=== PATIENT | male | born 1970 | race Caucasian/White ===

== ENCOUNTER 2017-11-26 05:17 | Day surgery (SDC) | payer OTHER ==
[~2017-11-26] VITALS: Ht 175.3 cm; Wt 72.6 kg
--- NOTE | ~2017-11-26 | H ---
[facility] [place] [address] HISTORY AND PHYSICAL Name: DENY MALCOLM Room #: 150-2 [facility]#: [id number] Admission: 11/26/17 Attend Phys: Jaleel Joshi MD Discharge: Date of : 68 Report #: [id number] THIS REPORT FOR: //name// CC: Dakota Joshi Patient of Dr. Jaleel Joshi and Dr. Dakota Hernandez. DATE OF ADMISSION AND SURGERY: 11/26/2017. CHIEF COMPLAINT: Left groin bulge. HISTORY OF PRESENT ILLNESS: The patient is a 47-year-old white male who noticed several weeks ago left groin bulge. He denied any pain. He did identify a protruding mass, but denied any recent changes in bowel or bladder habits. No history of any hernias. He saw Dr. Hernandez who recommended surgical consultation. PAST MEDICAL HISTORY: Hypercholesterolemia, vasectomy, abdominal hernia repair in 2004. MEDICATIONS: Ibuprofen, Zyrtec. ALLERGIES: No known drug allergies. FAMILY HISTORY: Noncontributory. SOCIAL HISTORY: . Drinks alcohol occasionally, does not smoke. REVIEW OF SYSTEMS: Pertinent positives as above. Full review of systems otherwise negative. PHYSICAL EXAMINATION: GENERAL: Well-developed, well-nourished 47-year-old white male, in no acute distress. VITAL SIGNS: Stable. He is afebrile. HEENT: Sclerae nonicteric. Mucous membranes moist and pink. NECK: There is no adenopathy. LUNGS: Clear to auscultation bilaterally. Normal excursion. CARDIOVASCULAR: Regular rate and rhythm. No murmurs, S3, S4, no PMI. ABDOMEN: Soft, flat, nontender, no palpable masses, no organomegaly, no hernias. GENITOURINARY: Normal scrotum, phallus and testes. There is a left inguinal hernia, which is partially reducible. EXTREMITIES: No clubbing, cyanosis or edema. NEUROLOGIC: Intact with a clear mental status. IMPRESSION: A 47-year-old white male with a left inguinal hernia. I fully [address] [address] HISTORY AND PHYSICAL Name: DENY MALCOLM Diony Room #: 150-2 [facility]#: [id number] Admission: 11/26/17 Attend Phys: Jaleel Joshi MD Discharge: Date of : 68 Report #: [id number] discussed with the patient the diagnosis, prognosis and treatment options. He states he understands, agrees to surgery. PLAN: We will perform a left inguinal hernia repair with mesh under local IV sedation as an outpatient at [facility]. The procedure and its risks, benefits, possible complications including use of mesh were fully discussed with the patient, he states he understands and agrees to proposed surgery. <ELECTRONICALLY SIGNED> By: Jaleel Joshi MD 11/26/17 1555 [id number] [id number] Jaleel Joshi MD /isidra
--- NOTE | ~2017-11-26 | O ---
[facility] [place] [place] [address] OPERATIVE REPORT Name: DENY MALCOLM Room #: 150-2 [facility]#: [id number] Admission: 11/26/17 Attend Phys: Jaleel Joshi MD Discharge: Date of : 68 Report #: [id number] THIS REPORT FOR: //name// CC: DAKOTA Joshi DATE OF SERVICE: 11/26/[address] Jaleel Joshi and Dr. Dakota Hernandez. PREOPERATIVE DIAGNOSIS: Left inguinal hernia. POSTOPERATIVE DIAGNOSIS: Left inguinal hernia with a left cord lipoma. PROCEDURE: Left inguinal hernia repair with Prolene hernia system mesh and excision of left cord lipoma. SURGEON: Jaleel Josih MD ANESTHESIA: Local IV sedation. DESCRIPTION OF PROCEDURE: The patient was brought to the operating room and placed on operative table in the supine position. Sequential compression devices were in place for DVT prophylaxis. There was no indication for preoperative antibiotics. The patient underwent IV sedation and the left inguinal area was prepped and draped in a sterile fashion. Skin and subcutaneous tissue were then infiltrated with 0.5% Marcaine and 1% Xylocaine in a 1:1 mixture. Left inguinal skin incision was then performed using #10 scalpel blade. Hemostasis obtained using electrocautery as well as clamps, 2-0 chromic ties. Dissection was carried down through subcutaneous tissue, the external oblique fascia, which was then identified and incised with knife and opened with the Metzenbaum scissors. The ilioinguinal nerve was identified, dissected free and preserved. The cord was then elevated and held into place with a Vermillion drain. Cremasteric muscle fibers were then split in the direction of their fibers using clamp and electrocautery. There was no evidence of any indirect inguinal hernia sac. The floor was inspected and there was a moderate sized direct inguinal hernia defect. This hernia sac was dissected free and incised just above the level of floor and reduced back through the floor into the preperitoneal space. An extended Prolene hernia system mesh was then inserted through the floor and the underlay patch was then deployed in the preperitoneal space. The connector was left in the floor and the floor was tightened around the connector using running 2-0 Prolene 2 layer shouldice repair. The overlay patch was then deployed in the inguinal canal and the mesh was secured at the pubic tubercle using the same running 2-0 Prolene suture. The mesh was also secured superiorly and at the connector using simple interrupted 2-[address] [address] OPERATIVE REPORT Name: DENY MALCOLM Room #: 150-2 [facility].#: [id number] Admission: 11/26/17 Attend Phys: Jaleel Joshi MD Discharge: Date of : 68 Report #: [id number] sutures. The mesh was then split and wrapped around the cord and secured to the inguinal ligament with simple interrupted 2-0 Vicryl suture. The cord and ilioinguinal nerve then returned to the canal intact. The external oblique fascia was then closed using running 2-0 Vicryl suture. Alonzo's fascia was then reapproximated using 3 simple interrupted 2-0 chromic sutures and the skin then closed with a running 4-0 subcuticular Vicryl stitch. The wound was then dressed with Mastisol, 1/2-inch Steri-Strips cut in half, Telfa, 4 x 4 gauze, sponge and tape. The patient was then taken to the recovery room awake, alert and in good condition. Estimated blood loss was less than 5 mL and the patient tolerated procedure well. All sponge, lap and instrument counts correct times 2. By: 1552 [id number] Jaleel Joshi MD /nt
--- NOTE | ~2017-11-26 | S ---
[facility] [address] [address] SURGICAL PATH RPT PROCEDURE Name: DENG MALCOLM Diony Room #: DEP [facility] [place] M.Tawana.#: [id number] Admission: 11/26/17 Date of : 68 Discharge: 11/26/17 Report #: [id number] Path Case #: [id number] PATHOLOGY REPORT COLLECTION DATE: 11/26/2017 RECEIVED DATE: 11/27/2017 SUBMITTING PHYS: Dr. Jaleel Joshi OTHER PHYS: Dr. Dakota Hernandez SPECIMEN(S) RECEIVED: A.Cord lipoma * * * * * * * * * * * * FINAL DIAGNOSIS: Mature adipose tissue, cord lipoma, excision: - Compatible with a lipoma with reactive changes. (IUV:db; 11/30/2017) PATHOLOGIST: Lenroa Charles M.D. REPORT ELECTRONICALLY SIGNED BY: Lenora Charles M.D. DATE/TIME: 11/30/2017 13:42 * * * * * * * * * * * * GROSS PATHOLOGY: Received in formalin labeled "Deng Malcolm, cord lipoma" and consists of a thinly encapsulated, glistening, yellow, and soft fragment of adipose tissue measuring 2.2 x 1.1 x 1.0 cm. Sectioning reveals glistening yellow cut surfaces. [employer] sections are submitted as A1. (EMILEE; 11/27/2017) CLINICAL HISTORY: Inguinal hernia INITIAL CPT CODE(S): A; 77480 Professional services performed by [facility] at [facility] [address] [place] [address] Technical services performed by [facility] at [address] [place] [id number]. [facility] [address] [place] [address] SURGICAL PATH RPT PROCEDURE Name: DENG MALCOLM Room #: DEP [facility] [place] Jaun#: [id number] Admission: 11/26/17 Date of : 68 Discharge: 11/26/17 Report #: [id number] Path Case #: [id number] [facility] [address] [place] [id number] PHONE: [phone] DIRECTOR: Amor Marinelli M.D. * * * END OF REPORT * * *
[~2017-11-26 05:17] MED LIST: IBUPROFEN 200200 M1 PO; PEPCID AC20 MG PO; ZYRTEC10 M5 PO
[2017-11-26 13:06] VITALS: BP 115/72
[2017-11-26] MEDS ORDERED: NORCO 5-325 TA1 EACH PO (15:56)
[2017-11-26 16:12] VITALS: BP 115/72
== END 2017-11-26 16:35 | disposition home or self-care (01) ==
LOC: TBA 05:17 → OR 05:17
DX: K40.90 Unilateral inguinal hernia, without obstruction or gangrene, not specified as recurrent (principal); D17.6 Benign lipomatous neoplasm of spermatic cord; E78.00 Pure hypercholesterolemia, unspecified; K21.9 Gastro-esophageal reflux disease without esophagitis; Z98.890 Other specified postprocedural states; Z79.891 Long term (current) use of opiate analgesic
CPT/HCPCS: 50010; 50101; 50386; 50417; 54111; 56524; 56525; 56526; 56528; 62110; 62850